=== PATIENT | male | born 1980 | race Caucasian/White ===

== ENCOUNTER → 2017-07-18 | Outpatient (CLI) | payer BC | END | disposition home or self-care (01) | LOC: RAD 15:07 | DX: R05 Cough (principal); R06.2 Wheezing; R09.89 Other specified symptoms and signs involving the circulatory and respiratory systems; R50.9 Fever, unspecified ==

== ENCOUNTER 2018-09-02 13:14 | Emergency (ER) | payer BC ==
[~2018-09-02] VITALS: Ht 182.8 cm; Wt 104.3 kg
[2018-09-02] MEDS ORDERED: HYDROCHLOROTH12.5 M2 PO (13:17)
[2018-09-02] MEDS ORDERED: LISINOPRIL10 M1 PO (13:17)
== END 2018-09-02 16:05 | disposition home or self-care (01) ==
LOC: ED 13:14
DX: S39.012A Strain of muscle, fascia and tendon of lower back, initial encounter (principal); M54.6 Pain in thoracic spine; Z79.899 Other long term (current) drug therapy; V40.5XXA Car driver injured in collision with pedestrian or animal in traffic accident, initial encounter; Y93.89 Activity, other specified; Y92.89 Other specified places as the place of occurrence of the external cause; Y99.8 Other external cause status

== ENCOUNTER 2018-10-21 11:52 | Inpatient (IN) | payer BC ==
--- NOTE | ~2018-10-21 | EKG ---
[place], [place] ELECTROCARDIOGRAM REPORT NAME: DARLIN SINGLETON UNIT #: [id number] ROOM: 517 DOCTOR: ANTONY DRAFT REPORT BIRTHDATE: [birth year] [facility] Test Date: 2018-10-21 Test Time: 11:55:16 Pat Name: DARLIN SINGLETON Department: Room: [facility] Gender: M Shingle Inspector: Edda Eckert : 1980 Requested By: RAYNE SALES Order Number: [id number] Reading MD: Skip Santiago MD Measurements Intervals [place] Rate: 89 P: 39 NE: 150 QRS: 42 QRSD: 108 T: -9 QT: 350 QTc: 426 Interpretive Statements Sinus rhythm Probable left atrial enlargement Borderline T abnormalities, inferior leads Baseline wander in lead(s) II,III,aVF Electronically Signed On 10-22-2018 18:09:01 PST by Skip Santiago MD CM:EKGRPT:ELECTROCARDIOGRAM REPORT [id number] 1809 RAYNE EPPERSON DRAFT REPORT RAYNE SALES DO
--- NOTE | ~2018-10-21 | EKG ---
[place], [place] ELECTROCARDIOGRAM REPORT NAME: DARLIN SINGLETON UNIT #: [id number] ROOM: 517 DOCTOR: ANTONY DRAFT REPORT BIRTHDATE: [birth year] [facility] Test Date: 2018-10-21 Test Time: 18:14:06 Pat Name: DARLIN SINGLETON Department: Room: 517 Gender: M Field Instructor: Edda Eckert : 1980 Requested By: RAYNE SALES Order Number: [id number] Reading MD: Skip Santiago MD Measurements Intervals [place] Rate: 81 P: 34 [place]: 156 QRS: 33 QRSD: 114 T: 13 QT: 381 QTc: 443 Interpretive Statements Sinus rhythm Probable left atrial enlargement Borderline intraventricular conduction delay ST elev, probable normal early repol pattern No change from earlier ECG this date Electronically Signed On 10-22-2018 18:18:17 PST by Skip Santiago MD CM:EKGRPT:ELECTROCARDIOGRAM REPORT 13 17 RAYNE SALES DO EPIPHANY DRAFT REPORT RAYNE SALES DO
--- NOTE | ~2018-10-21 | EKG ---
[place], [place] ELECTROCARDIOGRAM REPORT NAME: DARLIN SINGLETON UNIT #: [id number] ROOM: 517 DOCTOR: ANTONY DRAFT REPORT BIRTHDATE: [birth year] [facility] Test Date: 2018-10-21 Test Time: 14:32:50 Pat Name: DARLIN SINGLETON Department: Room: 517 Gender: M Wildlife Biostation Research Ecologist: Edda Eckert : 1980 Requested By: RAYNE SALES Order Number: [id number] Reading MD: Skip Santiago MD Measurements Intervals [place] Rate: 80 P: 31 [place]: 155 QRS: 42 QRSD: 106 T: 7 QT: 367 QTc: 424 Interpretive Statements Sinus rhythm Probable left atrial enlargement ST elev, probable normal early repol pattern Baseline wander in lead(s) V1 No change from earlier ECG this date Electronically Signed On 10-22-2018 18:13:41 PST by Skip Santiago MD CM:EKGRPT:ELECTROCARDIOGRAM REPORT [id number] 1813 RAYNE EPPERSON DRAFT REPORT RAYNE SALES DO
[~2018-10-21 11:52] MED LIST: HYDROCHLOROTH12.5 M2 PO; LISINOPRIL10 M1 PO
[2018-10-21 12:17] LABS: BASO # 0.1 10*3/uL (0.0-0.1); BASO % 1.1 % (0.0-1.0); EOS # 0.3 10*3/uL (0.0-0.4); EOS % 4.6 % (1.0-4.0); HEMATOCRIT 50.9 % (42.0-52.0); HEMOGLOBIN 17.4 g/dl (14.0-18.0); LYMPH # 1.8 10*3/uL (1.3-4.4); LYMPH % 27.9 % (27.0-41.0); MEAN CELL VOLUME 86.7 fl (80.0-94.0); MEAN CORPUSCULAR HGB 29.6 pg (27.0-31.0); MEAN CORPUSCULAR HGB CONC 34.2 g/dl (33.0-37.0); MEAN PLATELET VOLUME 9.4 fl (9.6-12.3); MONO # 0.5 10*3/uL (0.1-1.0); NEUT # 3.9 10*3/uL (2.3-7.9); NEUT % 59.2 % (47.0-73.0); PLATELET COUNT AUTOMATED 264 10*3/uL (130-400); RED BLOOD COUNT 5.87 10*6/uL (4.50-5.90); RED CELL DISTRI WIDTH 12.1 % (0-14.5); WHITE BLOOD COUNT 6.6 10*3/uL (4.8-10.8)
[2018-10-21 12:22] VITALS: BP 138/91
[2018-10-21 12:28] LABS: ACT PARTIAL THROMBO TIME 21.9 SECONDS (20.8-31.5)
[2018-10-21 12:34] LABS: ALKALINE PHOSPHATASE 68 U/L (45-117); BUN 11 mg/dl (7-24); CHLORIDE 105 mmol/L (98-107); CREATININE 0.88 mg/dL (0.70-1.30); POTASSIUM 3.7 mmol/L (3.5-5.1); SGOT/AST 26 IU/L (3-35); SGPT/ALT 56 U/L (12-78); SODIUM 138 mmol/L (136-145); TOTAL PROTEIN 8.2 gm/dL (6.4-8.2); TROPONIN I < 0.015 ng/ml (<0.045)
[2018-10-21 13:16] VITALS: BP 126/87
[2018-10-21 15:31] VITALS: BP 137/85
--- NOTE | 2018-10-21 15:31 | NUR ---
MEDICATED WITH 1 SL NITRO. VSS.
--- NOTE | 2018-10-21 16:00 | NUR ---
PATIENT STATES HIS CHEST PAIN WAS ALLEVIATED WITH NITRO BUT NO RELIEF WITH GI COCKTAIL.
--- NOTE | 2018-10-21 16:30 | NUR ---
PATIENT DENIES ANY WOUNDS A&OX4.
[2018-10-21 16:40] VITALS: BP 135/80
--- NOTE | 2018-10-21 17:20 | NUR ---
A 38, admitted to 5E, under the services of LUCERO Warner DO with a diagnosis of CHEST PAIN. Chief complaint is CHEST PAIN. Patient arrived via bed from ER. Monitor applied. Initial assessment completed. Vital signs taken and recorded. LUCERO WARNER DO notified of admission to the unit. Orders received. See assessment for past medical history, medications and allergies. Patient and/or family oriented to unit. [facility] visitation policy reviewed. Clothing/patient valuable form completed. REBECCA LLAMAS
[2018-10-21 20:00] VITALS: BP 133/82
[2018-10-22] VITALS: BP 135/90
[2018-10-22 06:37] LABS: BASO # 0.1 10*3/uL (0.0-0.1); BASO % 1.1 % (0.0-1.0); EOS # 0.3 10*3/uL (0.0-0.4); EOS % 4.7 % (1.0-4.0); HEMOGLOBIN 16.3 g/dl (14.0-18.0); LYMPH # 2.2 10*3/uL (1.3-4.4); LYMPH % 30.7 % (27.0-41.0); MEAN CELL VOLUME 86.9 fl (80.0-94.0); MEAN CORPUSCULAR HGB 28.9 pg (27.0-31.0); MEAN CORPUSCULAR HGB CONC 33.3 g/dl (33.0-37.0); MEAN PLATELET VOLUME 9.4 fl (9.6-12.3); MONO # 0.6 10*3/uL (0.1-1.0); MONO % 7.6 % (3.0-9.0); NEUT % 55.6 % (47.0-73.0); PLATELET COUNT AUTOMATED 245 10*3/uL (130-400); RED BLOOD COUNT 5.64 10*6/uL (4.50-5.90); RED CELL DISTRI WIDTH 12.2 % (0-14.5); WHITE BLOOD COUNT 7.2 10*3/uL (4.8-10.8)
[2018-10-22 06:45] LABS: ALBUMIN 3.7 gm/dl (3.1-4.5); BUN 14 mg/dl (7-24); CHLORIDE 104 mmol/L (98-107); CHOLESTEROL 256 mg/dL (<200); CREATININE 0.85 mg/dL (0.70-1.30); POTASSIUM 3.9 mmol/L (3.5-5.1); SGOT/AST 24 IU/L (3-35); SGPT/ALT 48 U/L (12-78); SODIUM 139 mmol/L (136-145); TOTAL PROTEIN 7.6 gm/dL (6.4-8.2); TRIGLYCERIDES 222 mg/dl (<150); VLDL CHOLESTEROL 44 mg/dL (6-40)
[2018-10-22 06:52] LABS: ALKALINE PHOSPHATASE 57 U/L (45-117); HDL CHOLESTEROL 35 mg/dl (40-60); LDL CHOLESTEROL 177 mg/dL (9-159)
--- NOTE | 2018-10-22 07:30 | NUR ---
Patient resting quietly with no c/o discomfort. Respirations easy and regular. Vital signs stable. No overt distress. KAILEE ODELL R
[2018-10-22 08:58] LABS: VITAMIN D, 25-HYDROXY 21.5 ng/mL (30-100)
--- NOTE | 2018-10-22 09:21 | NUR ---
Discharge instructions reviewed with patient/family. Patient receptive and verbalizes understanding. Follow-up care arranged. Written instructions given to patient/family. KAILEE ODELL
--- NOTE | 2018-10-22 10:35 | NUR ---
Solar Electric Installer in to talk to patient. Patient states lives at HOME with FAMILY. There are SOME steps in the home. Physician: MADHURI Pharmacy: [facility] [place] [facility] services: NONE Patient's level of ADLs: INDEPENDENT Patient has working utilities: YES DME: NONE Follow-up physician's appointment after d/c: WILL BE MADE BY HOSPITALIST VERONICA DIRECTOR ON DISCHARGE Does patient want to access PORTAL?: NO Discharge plan PT LIVES AT HOME WITH FAMILY AND IS INDEPENDENT IN CARE. STATES NO NEEDS ON DISCHARGE. WILL CONTINUE TO FOLLOW.. AVELINA CORTES
== END 2018-10-22 09:21 | disposition home or self-care (01) | DRG 392 ==
LOC: ED 11:52 → 5E 15:56 → EDHOLD 15:56 → 5E 16:14
PROVIDERS: Internal Medicine; Student in an Organized Health Care Education/Training Program; ADMIT Emergency Medicine
DX: K21.9 Gastro-esophageal reflux disease without esophagitis (principal); I10 Essential (primary) hypertension; Z87.442 Personal history of urinary calculi; Z80.1 Family history of malignant neoplasm of trachea, bronchus and lung

== ENCOUNTER → 2018-11-13 | Outpatient (CLI) | payer BC ==
--- NOTE | ~2018-11-13 | ST ---
[place], [place] EXERCISE STRESS TEST REPORT [facility]: [id number] UNIT #: [id number] ROOM: DOCTOR: LUCIUS NOGUEIRA MD BIRTHDATE: [birth year] DOS: 11/13/2018 EXERCISE STRESS TEST INDICATIONS: Chest pain. PROCEDURE: The patient walked on a full Oli protocol for 12 minutes and stopped for fatigue. He had no chest pain. He achieved a maximum heart rate of 159, which represented 87% of his maximum predicted heart rate at a workload of 12.5 mets. The resting blood pressure of 122/78 tasneem to 160/66. He did not have any diagnostic electrocardiographic changes. He did not have any chest pain. The resting and stress EKGs were normal. Oli treadmill score was 12, consistent with low risk for cardiac events. IMPRESSION: 1. Excellent exercise capacity without chest pain or diagnostic electrocardiographic changes. 2. Oli treadmill score equals 12 consistent with low risk for future cardiac events. 3. Low risk exercise stress test. LUCIUS NOGUEIRA MD CM:STRESS:EXERCISE STRESS TEST REPORT [id number] TERRELL JUNG DO and GOMEZ NOGUEIRA MD
--- NOTE | 2018-11-13 09:45 | NUR ---
INFORMED CONSENT OBTAINED FOR STANDARD GXT WITH DR. NOGUEIRA. RESTING EKG NSR WITH A SUPINE HR OF 83 WITH BP OF 122/78 AND HR OF 90 WITH BP OF 106/78 IN STANDING POSITION. PT COMPLETED 12:00 OF A GARRY PROTOCOL WITH COMPLETION OF STAGE IV AT 4.2 MPH AND 16% GRADE. REACHED A PEAK HR OF 159 WHICH IS 87% OF PREDICTED MAX WITH A PEAK BP OF 160/66. HAD NO CHEST PAIN OR ANY EKG CHANGES. TEST TERMINATED BECAUSE OF FATIGUE. NEGATIVE STANDARD GXT. LAST RECOVERY HR OF 106 WITH BP OF 118/72. HAS A HIGH EXERCISE TOLERANCE. DISCHARGED IN STABLE CONDITION.
== END | disposition home or self-care (01) ==
LOC: CARD 11-06 09:30
DX: R07.9 Chest pain, unspecified (principal)

== ENCOUNTER 2019-05-21 16:46 | Emergency (ER) | payer BC ==
[~2019-05-21] VITALS: Ht 182.8 cm; Wt 108.9 kg
[2019-05-21 17:45] LABS: BASO # 0.1 10*3/uL (0.0-0.1); BASO % 0.9 % (0.0-1.0); EOS # 0.2 10*3/uL (0.0-0.4); EOS % 2.8 % (1.0-4.0); HEMATOCRIT 44.2 % (42.0-52.0); HEMOGLOBIN 15.2 g/dl (14.0-18.0); LYMPH # 2.1 10*3/uL (1.3-4.4); LYMPH % 25.9 % (27.0-41.0); MEAN CELL VOLUME 86.8 fl (80.0-94.0); MEAN CORPUSCULAR HGB 29.9 pg (27.0-31.0); MEAN CORPUSCULAR HGB CONC 34.4 g/dl (33.0-37.0); MEAN PLATELET VOLUME 9.5 fl (9.6-12.3); MONO # 0.6 10*3/uL (0.1-1.0); MONO % 7.7 % (3.0-9.0); NEUT # 4.9 10*3/uL (2.3-7.9); NEUT % 62.4 % (47.0-73.0); PLATELET COUNT AUTOMATED 224 10*3/uL (130-400); RED BLOOD COUNT 5.09 10*6/uL (4.50-5.90); WHITE BLOOD COUNT 7.9 10*3/uL (4.8-10.8)
[2019-05-21 17:59] LABS: ALKALINE PHOSPHATASE 62 U/L (45-117); BUN 12 mg/dl (7-24); CHLORIDE 103 mmol/L (98-107); CREATININE 0.89 mg/dL (0.70-1.30); LIPASE 139 U/L (73-393); POTASSIUM 3.5 mmol/L (3.5-5.1); SGOT/AST 18 IU/L (3-35); SGPT/ALT 30 U/L (12-78); SODIUM 137 mmol/L (136-145); TOTAL PROTEIN 7.7 gm/dL (6.4-8.2)
[2019-05-21 20:02] LABS: BILIRUBIN NEGATIVE (NEGATIVE); BLOOD NEGATIVE (NEGATIVE); CLARITY CLEAR (CLEAR); COLOR YELLOW (YELLOW); GLUCOSE NEGATIVE (NEGATIVE); KETONE NEGATIVE (NEGATIVE); LEUKO ESTERASE NEGATIVE (NEGATIVE); NITRITE NEGATIVE (NEGATIVE); UROBILINOGEN 0.2 E.U./dl (0.2-1.0)
[2019-05-21 20:12] LABS: CALCIUM OXALATE CRYSTALS 1+; RBC 0-2 rbc/hpf (0-2); WBC 0-2 wbc/hpf (0-5)
== END 2019-05-21 20:29 | disposition home or self-care (01) ==
LOC: ED 16:46
PROVIDERS: Physician Assistant
DX: K59.00 Constipation, unspecified (principal); R19.7 Diarrhea, unspecified; Z79.899 Other long term (current) drug therapy

== ENCOUNTER → 2019-06-12 | Outpatient (CLI) | payer BC | END | disposition home or self-care (01) | LOC: LAB 09:04 | DX: K52.9 Noninfective gastroenteritis and colitis, unspecified (principal) ==